=== PATIENT | male | born 1985 | race Two or more races ===

== ENCOUNTER 2018-06-12 20:04 | Emergency (ER) | payer OTHER, SELFPAY ==
[2018-06-12 20:06] VITALS: BP 161/114; PULSE 76; RESP 18; TEMP 36.6; O2SAT 99; BMI 26.3
[2018-06-12 20:13] VITALS: PULSE 60; RESP 18; O2SAT 97
--- NOTE | 2018-06-12 20:49 | ED.DCSUM_ITS ---
- ER Visit Summary Date of Service: 06/12/18 Chief Complaint: Vomiting History of Present Illness: The patient is a 32 M who presents to the emergency department vomiting. Patient states he was feeling well but all during the day until around 1500 hrs. when he began to vomit. No abdominal pain or diarrhea. No fevers. No known bad food exposures. No rashes. He states he has had some constipation over the last couple days. Physical Examination: Afebrile vital signs are stable Gen: Well-nourished well-developed Head: Normocephalic atraumatic Eyes: Perrl EOMI ENT: TMs clear no rhinorrhea moist mucous membranes Neck: Supple no lymphadenopathy no JVD nontender CVS: Regular rate rhythm no murmurs normal S1-S2 Respiratory: No distress clear to auscultation bilaterally chest nontender Abdomen: Soft nontender nondistended normal bowel sounds no masses Back: Nontender Extremity: Nontender no edema Skin: Normal color no rash Neuro: alert orientated ?3 CN II-XII intact normal strength sensation reflexes gait cerebellar Psych: Normal affect normal mood Test Results: [] Emergency Department Course and Treatment: Patient received IV fluids and Zofran. P.o. challenge will be given. Impression: 1. Vomiting This note was generated with [employer] dictation software. It may contain incorrect words, spelling, and punctuation that were not noted in review of the chart prior to signing ED Disposition - Plan for ED Patient: Disposition: Home or Assisted Living Instructions: ED Nausea Vomiting Prescriptions: Ondansetron [Zofran Odt] 4 mg PO Q6H PRN PRN #14 tab PRN Reason: Nausea Referrals: Niko Pinedo MD [Primary Care Provider] - As Needed
[2018-06-12] MEDS: 0.9% Normal Saline 1,000 ML 1000 ML IV (20:54)
[2018-06-12] MEDS: Ondansetron 4 MG/2 ML Vial IV (20:54)
[2018-06-12 21:24] VITALS: BP 135/93; PULSE 50; RESP 14; O2SAT 99
[2018-06-12] MEDS: Ondansetron ODT 4 MG Tablet PO (22:24)
[2018-06-12 22:28] VITALS: BP 155/83; PULSE 60; RESP 15; O2SAT 100
--- NOTE | 2018-06-12 22:29 | ED.RN ---
pt ox4, given written and verbal discharge instructions and home going prescriptions. pt given home pack and educated on medication use and discharge diagnosis. pt verbalizes understanding and denies any further questions. pt iv d/c and covered with 2x2 gauze and paper tape. pt dresses self and ambulates to waiting room unattended. legal administrative secretary called a cab for pt to have a ride home.
== END 2018-06-12 22:31 | disposition home or self-care (01) ==
PROVIDERS: Emergency Provider Emergency Medicine; Family Provider Family Medicine; PCP Family Medicine
DX: R11.2 Nausea with vomiting, unspecified (principal); K59.00 Constipation, unspecified; F32.9 Major depressive disorder, single episode, unspecified; F41.9 Anxiety disorder, unspecified
CPT/HCPCS: 96361; 96374; 99285; J7030; A4216; J2405

== ENCOUNTER 2018-06-15 17:57 | Emergency (ER) | payer OTHER, SELFPAY ==
[2018-06-15 17:58] VITALS: BP 127/85; PULSE 66; RESP 20; TEMP 36.4; O2SAT 99; BMI 25.0
--- NOTE | 2018-06-15 18:29 | CT_ITS ---
We are attempting to reach Juan Luis Olivia MD to discuss findings. An addendum with communication details will be sent when the communication is complete. STUDY: CT BRAIN WITH AND WITHOUT CONTRAST REASON FOR EXAM: Male, 32 years old. Vomiting and confusion. RADIATION DOSAGE (If Supplied By Facility): CTDIvol = ( 44.99 ) mGy, DLP = ( 1580.97 ) mGycm TECHNIQUE: Transaxial CT imaging of the brain was performed pre and post contrast administration. The examination was performed with intravenous administration of Isovue 370 50ml IV. Individualized dose optimization techniques were used for this CT. COMPARISON: None. FINDINGS: Normal soft tissue structures. Normal calvarium. There is a complex mass in the center of the brain, probably arising in the left basal ganglia, approximately 5.1 cm greatest dimension. It is compressing the left lateral ventricle and crossing the midline with approximately 1 cm of midline shift. It has a cystic component approximately 4 cm greatest dimension medially and an isodense component laterally. A second spherical cystic component is seen along the lateral edge. There is peripheral enhancement. There is very little if any significant edema. There is no evidence for intrinsic hemorrhage. This is consistent with either primary or metastatic neoplasm. Further evaluation with contrasted MRI is recommended. There is subfalcine herniation. There is probable generalized increased intracranial pressure with effacement of sulci and effacement of basal cisterns. Normal brainstem. Normal cerebellum. There is no intracranial hemorrhage. There are no findings of an acute ischemic infarction. Normal visualized paranasal sinuses. CT/Brain/Head W/WO Contrast IMPRESSION: Complex 5.1 cm mass probably arising in the left basal ganglia consistent with neoplasm and resulting in midline shift and diffuse increased intracranial pressure. Further evaluation with contrasted MRI is recommended. Electronically Signed: Brayan Butt MD at 19:45 EST , Service support ,
--- NOTE | 2018-06-15 18:40 | ED.VIS.GEN ---
History of Present Illness Chief Complaint: Nausea/Vomiting Detail of Chief Complaint: Patient disoriented, disorganized thoughts Informant: Patient Onset: - - Unknown Context: - - Unknown Timing: - - Unknown Quality: Patient reports nausea vomiting x2. 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 He believes is July. He is picking at his left thumbnail. He states he lives alone, but someone called the paramedics. When asked who called he replied they called . He told me he has had pancreatitis. There is no prior record of pancreatitis. He was in the emergency department for similar presentation. History is very limited. Patient denied taking any medication at home. He states he is on no pain medicine. He replied no to alcohol use or drug use. Prior similar symptoms: Yes Recent Illness/Hospitalization: Yes Capacity - Capacity Assessment Tool Can the patient make a choice & communicate that choice?: No Can the patient understand benefits, risks and alternatives?: No Can the patient make a logical, rational choice?: No Is the choice the patient makes consistent w/ their values?: No - Unknown Is there an impending, emergent risk to the patient?: Yes Does the patient have an Advance Directive?: No - Unknown Is there a Surrogate Available?: No - None is available i.e. HCPOA: No - Unknown i.e. close relative (spouse, child, parent, sibling)?: No - Call was placed to mother. She has a line line. Voice mailbox is full. T Past Medical History - Allergies and Home Meds Allergies/Adverse Reactions: Allergies No Known Allergies Allergy (Verified 06/12/18 20:05) Primary Care Physician: Niko Pinedo MD [Primary Care Provider] - Prior records reviewed: Yes Past Medical History: None Surgical History: noncontributory Lives: Alone Smoking Status: Never smoker Alcohol: None Drugs: None Review of Systems ROS: Unable to Obtain - Patient was asked multiple questions. The only thing that he acknowledged was pain but could not localize. He acknowledged nausea and vomiting. And he acknowledged dry mouth. Physical Exam Vital Signs/Narrative: Vital Signs Temp Pulse Resp BP Pulse Ox 06/15/18 17:58 97.6 F L 66 20 H 127/85 H 99 Inital Vital Signs reviewed: Yes General: Well nourished, Well developed, Unkempt, - - Patient's face appears to be partially shaved. Head: Normocephalic, Atraumatic. Negative for: Tenderness Eyes: Perrl, EOMI, - - Cup-to-disc ratio appears normal. Margins of optic nerve are fuzzy with no obvious papilledema.. Negative for: Pale conjunctiva, Scleral icterus ENT: No rhinorrhea, TM's clear, Dry mucous membranes. Negative for: Sinus tenderness Neck: Supple, Nontender, No lymphadenopathy, No JVD Cardiovascular: Regular rate, Regular rhythm, No murmurs, Normal S1, Normal S2 Respiratory: No distress, CTA bilaterally, Chest nontender, Rales Abdomen: Soft, Nondistended, No masses, Tender - Epigastric discomfort. Negative for: Guarding, Rebound tenderness, Hepatomegaly, Splenomegaly, Mass Back: Nontender, Normal Inspection Extremities: Nontender, No edema Skin: Normal color, No rash. Negative for: Cyanosis, Jaundice, Trauma Neurological: Cranial nerves II-XII grossly intact, Normal Sensation, Normal DTR, Confused. Negative for: Alert, Oriented x3, Normal Strength Psychological: - - Thought content disorganized. Diagnostic/Tx/Re-eval CBC, electric panel,, and EtOH are normal. Tox screen is pending. Unenhanced CAT scan reveals mass-effect with compression of the anterior horn with slight shift and vasogenic edema. CT with contrast was added. Awaiting formal read by radiologist. Complex 5.1 cm mass probably arising in the left basal ganglia consistent with neoplasm and resulting in midline shift and diffuse increased intracranial pressure. Further evaluation with contrasted MRI is recommended. N.B. : The above information has been verbally conveyed by Brayan Butt MD to Dr. Juan Luis Olivia MD, on 06/15/2018 19:54:57 (ET). I was informed that [facility] had no beds available. [facility] was contacted. Spoke with neurosurgeon Dr. Solis who accepted patient. - Medical Decision Making Patient is disorganized, not alert disoriented. He denies drug use. He denies psychiatric disorder. 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 With marked altered mental status and no clear etiology will obtain CBC, hepatic profile, electrolyte panel, UA and CT of the head. A tox screen was also ordered. There was no odor of alcohol on his breath noted. Went to reassess patient since [facility] has no beds. He is now talking. He has a facial droop noted on the right side. He was informed he has a mass on head CAT scan. He states he will contact his mother. She apparently has a cell phone. Since there are no beds available at [facility] will contact [facility]. Will first ask if his insurance is in network. Patient was accepted by Dr. Solis neurosurgeon at [facility]. He requested all lab results and disc of CT images. If able forced transmit images to . Spoke with his mother. She was made aware that he will be transferred to [facility]. She informed me that he is not been his normal self and problems with memory for approximately 2 months. - Critical Care Time Critical care time (excluding procedures): 30-74 minutes, Discussing w/Patient &/or Family/Heel Sewer, Discussing w/Consultants, Arranging Admission or Transfer - Patient improved after Decadron. He is still having difficulty processing information. ED Disposition - Plan for ED Patient: Disposition: Acute Care Hospital - Other Diagnosis: Brain neoplasm malignant Referrals: Niko Pinedo MD [Primary Care Provider] -
--- NOTE | 2018-06-15 18:44 | ED.DCSUM_ITS ---
History of Present Illness Chief Complaint: Nausea/Vomiting Detail of Chief Complaint: Patient disoriented, disorganized thoughts Informant: Patient Onset: - - Unknown Context: - - Unknown Timing: - - Unknown Quality: Patient reports nausea vomiting x2. 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 He believes is July. He is picking at his left thumbnail. He states he lives alone, but someone called the paramedics. When asked who called he replied they called . He told me he has had pancreatitis. There is no prior record of pancreatitis. He was in the emergency department for similar presentation. History is very limited. Patient denied taking any medication at home. He states he is on no pain medicine. He replied no to alcohol use or drug use. Prior similar symptoms: Yes Recent Illness/Hospitalization: Yes Capacity - Capacity Assessment Tool Can the patient make a choice & communicate that choice?: No Can the patient understand benefits, risks and alternatives?: No Can the patient make a logical, rational choice?: No Is the choice the patient makes consistent w/ their values?: No - Unknown Is there an impending, emergent risk to the patient?: Yes Does the patient have an Advance Directive?: No - Unknown Is there a Surrogate Available?: No - None is available i.e. HCPOA: No - Unknown i.e. close relative (spouse, child, parent, sibling)?: No - Call was placed to mother. She has a line line. Voice mailbox is full. T Past Medical History - Allergies and Home Meds Allergies/Adverse Reactions: Allergies No Known Allergies Allergy (Verified 06/12/18 20:05) Primary Care Physician: Niko Pinedo MD [Primary Care Provider] - Prior records reviewed: Yes Past Medical History: None Surgical History: noncontributory Lives: Alone Smoking Status: Never smoker Alcohol: None Drugs: None Review of Systems ROS: Unable to Obtain - Patient was asked multiple questions. The only thing that he acknowledged was pain but could not localize. He acknowledged nausea and vomiting. And he acknowledged dry mouth. Physical Exam Vital Signs/Narrative: Vital Signs Temp Pulse Resp BP Pulse Ox 06/15/18 17:58 97.6 F L 66 20 H 127/85 H 99 Inital Vital Signs reviewed: Yes General: Well nourished, Well developed, Unkempt, - - Patient's face appears to be partially shaved. Head: Normocephalic, Atraumatic. Negative for: Tenderness Eyes: Perrl, EOMI, - - Cup-to-disc ratio appears normal. Margins of optic nerve are fuzzy with no obvious papilledema.. Negative for: Pale conjunctiva, Scleral icterus ENT: No rhinorrhea, TM's clear, Dry mucous membranes. Negative for: Sinus tenderness Neck: Supple, Nontender, No lymphadenopathy, No JVD Cardiovascular: Regular rate, Regular rhythm, No murmurs, Normal S1, Normal S2 Respiratory: No distress, CTA bilaterally, Chest nontender, Rales Abdomen: Soft, Nondistended, No masses, Tender - Epigastric discomfort. Negative for: Guarding, Rebound tenderness, Hepatomegaly, Splenomegaly, Mass Back: Nontender, Normal Inspection Extremities: Nontender, No edema Skin: Normal color, No rash. Negative for: Cyanosis, Jaundice, Trauma Neurological: Cranial nerves II-XII grossly intact, Normal Sensation, Normal DTR, Confused. Negative for: Alert, Oriented x3, Normal Strength Psychological: - - Thought content disorganized. Diagnostic/Tx/Re-eval CBC, electric panel,, and EtOH are normal. Tox screen is pending. Unenhanced CAT scan reveals mass-effect with compression of the anterior horn with slight shift and vasogenic edema. CT with contrast was added. Awaiting formal read by radiologist. Complex 5.1 cm mass probably arising in the left basal ganglia consistent with neoplasm and resulting in midline shift and diffuse increased intracranial pressure. Further evaluation with contrasted MRI is recommended. N.B. : The above information has been verbally conveyed by Brayan Butt MD to Dr. Juan Luis Olivia MD, on 06/15/2018 19:54:57 (ET). I was informed that [facility] had no beds available. [facility] was contacted. Spoke with neurosurgeon Dr. Solis who accepted patient. - Medical Decision Making Patient is disorganized, not alert disoriented. He denies drug use. He denies psychiatric disorder. 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 With marked altered mental status and no clear etiology will obtain CBC, hepatic profile, electrolyte panel, UA and CT of the head. A tox screen was also ordered. There was no odor of alcohol on his breath noted. Went to reassess patient since [facility] has no beds. He is now talking. He has a facial droop noted on the right side. He was informed he has a mass on head CAT scan. He states he will contact his mother. She apparently has a cell phone. Since there are no beds available at [facility] will contact [facility]. Will first ask if his insurance is in network. Patient was accepted by Dr. Solis neurosurgeon at [facility]. He requested all lab results and disc of CT images. If able forced transmit images to . Spoke with his mother. She was made aware that he will be transferred to [facility]. She informed me that he is not been his normal self and problems with memory for approximately 2 months. - Critical Care Time Critical care time (excluding procedures): 30-74 minutes, Discussing w/Patient &/or Family/Counseling Aide, Discussing w/Consultants, Arranging Admission or Transfer - Patient improved after Decadron. He is still having difficulty processing information. ED Disposition - Plan for ED Patient: Disposition: Acute Care Hospital - Other Diagnosis: Brain neoplasm malignant Referrals: Niko Pinedo MD [Primary Care Provider] -
[2018-06-15] MEDS: 0.9% Normal Saline 1,000 ML 150 ML IV (18:51)
[2018-06-15] MEDS: Ondansetron 4 MG/2 ML Vial IV (18:51)
[2018-06-15 19:07] LABS: Absolute Neutrophil Count 4.6 X10^3/uL (2.0-7.7); Basophil# 0.02 X10^3/uL; Basophil% 0.3 % (0-1); Eosinophil# 0.03 X10^3/uL; Eosinophils% 0.5 % (0-5); Hemoglobin 14.7 g/dl (13.0-16.5); Lymphocyte % 20.3 % (19-41); Mean Corp Hgb Conc 33.4 g/gl (32-36); Mean Corpuscular Volume 89.8 fL (80-94); Mean Platelet Vol. 10.8 fl (6.2-12.0); Monocyte# 0.43 X10^3/uL; Monocyte% 6.7 % (0-10); Neutrophil # 4.61 X10^3/uL (2.7-7.7); Neutrophil % 72.2 % (47-70); Platelet Count 188 K/mm3 (150-450); RBC Distribution Width CV 12.3 % (11.6-14.6); RBC Distribution Width SD 39.7 fl (35.1-43.9); White Blood Count 6.4 K/mm3 (4.4-11.0)
[2018-06-15 19:10] LABS: AST(SGOT) 15 U/L (15-37); Alanine Aminotransfer ALT/SGPT 22 U/L (16-61); Albumin, Serum 4.1 g/dL (3.2-5.0); Alkaline Phosphatase 87 U/L (45-117); Anion Gap 9 (5-15); BUN 10 mg/dL (7-18); Bilirubin, Direct 0.14 mg/dL (0.00-0.30); Calcium,Total 8.9 mg/dL (8.5-10.1); Chloride 106 mmol/L (98-107); EST Glomerular Filtration Rate 90 mL/min (>60); Est Glom Filt Rate - Afr Amer 109 mL/min (>60); Estimated Creatinine Clearance 121.02 ml/min; Globulin 3.5 g/dL (2.2-4.2); Glucose 97 mg/dL (74-106); Potassium 3.5 mmol/L (3.5-5.1); Protein, Total 7.6 g/dL (6.4-8.2); Sodium Level 142 mmol/L (136-145)
[2018-06-15 19:20] LABS: POSITIVE COUNT NO; POSITIVE DIFFERENTIAL NO; POSITIVE MORPHOLOGY NO
--- NOTE | 2018-06-15 19:50 | RAD_ITS ---
STUDY: X-RAY CHEST REASON FOR EXAM: Male, 32 years old. Nausea and vomiting. TECHNIQUE: Single AP portable view of the chest. COMPARISON: None. FINDINGS: The lungs are clear and expanded. There is no demonstrated pleural abnormality. Normal size heart. Normal mediastinum and max. Normal visualized pulmonary arteries. Normal visualized aortic arch and descending thoracic aorta. Normal visualized thoracic spine. Normal visualized ribs, clavicles, and shoulders. There is no demonstrated abnormality of the visualized soft tissue structures of the upper abdomen. RAD/Chest 1 View (Portable) IMPRESSION: Normal x-ray examination of the chest. Electronically Signed: Brayan Butt MD at 20:09 EST , Service support ,
--- NOTE | 2018-06-15 19:52 | ED.RN ---
PT C/O H/A SINCE WEDNESDAY, PT UNABLE TO ANSWER SIMPLE QUESTIONS INSTANTLY, PT STOPS STARES AND THINKS ABOUT THE QUESTION THEN FORGETS WHAT WAS ASKED. PT REPORTED POOR APPETITE LATELY AND NAUSEA WITH VOMITING. PT DENIES PHOTOPHOBIA.
[2018-06-15 20:37] VITALS: BP 122/85; PULSE 82; RESP 18; O2SAT 97
--- NOTE | 2018-06-15 20:40 | CM.ED ---
SOCIAL WORK NOTE THIS WORKER CONSULTED PER DR. VARGAS TO ASSIST WITH NEEDS. PT WITH BRAIN TUMOR AND REQUIRING TRANSFER. PT WORKING FOR THE [facility], NO CONTACT ON FILE. [employer] THROUGH THE [employer] WAS CONTACTED FOR NEXT OF KIN. DR. VARGAS WAS ABLE TO CONTACT PT'S MOTHER, RAH CAIN [phone] TO UPDATE ON PT'S STATUS AND NEED FOR TRANSFER. DR. VARGAS REQUESTING THIS WORKER FOLLOW UP WITH PT'S MOTHER TO UPDATE ON ACCEPTING HOSPITAL, ROOM NUMBER, AND CONTACT INFORMATION ONCE RECEIVED. 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 DR. VARGAS SPOKE WITH DR. YEN AT AND PT HAS BEEN ACCEPTED.
--- NOTE | 2018-06-15 21:45 | CM.ED ---
SOCIAL WORK NOTE CALL TO PT'S MOTHER, RAH CAIN [phone]. UPDATED PT TO BE TRANSFERRED TO [facility], [address] BED 1. PROVIDED MOTHER WITH CONTACT INFORMATION TO HOSPITAL [phone]. ALL QUESTIONS ANSWERED AND EMOTIONAL SUPPORT PROVIDED. MOTHER TO FOLLOW UP WITH [facility] THIS EVENING TO PROVIDE ALL CONTACT INFORMATION. FÉLIX GAO, HELMET BINDER, MORTGAGE PROCESSOR.
[2018-06-15 22:00] VITALS: BP 115/80; PULSE 69; RESP 16; O2SAT 95
[2018-06-15 22:14] VITALS: BP 115/80; PULSE 69; RESP 16; O2SAT 95
== END 2018-06-15 23:00 | disposition short-term general hospital (02) ==
PROVIDERS: Emergency Provider Emergency Medicine; Family Provider Family Medicine; PCP Family Medicine
DX: C71.9 Malignant neoplasm of brain, unspecified (principal); Z60.2 Problems related to living alone
CPT/HCPCS: 70470; 71045; 80048; 80076; 80320; 85025; 96361; 96374; 96375; 99285; J7030; Q9967; G0480; J2405